=== PATIENT | male | born 1970 | race Caucasian/White ===

== ENCOUNTER 2018-02-11 02:22 | Emergency (ER) | payer SELFPAY ==
[~2018-02-11] VITALS: Ht 170.2 cm; Wt 65.0 kg
[2018-02-11 02:28] VITALS: BP 145/101
== END 2018-02-11 07:00 | disposition left against medical advice (07) ==
LOC: ER 02:22
DX: H93.13 Tinnitus, bilateral (principal); H65.93 Unspecified nonsuppurative otitis media, bilateral; H91.8X3 Other specified hearing loss, bilateral; F17.200 Nicotine dependence, unspecified, uncomplicated
CPT/HCPCS: 99281